=== PATIENT | male | born 1965 | race Two or more races ===

== ENCOUNTER 2022-07-14 13:21 | Emergency (ER) | payer OTHER ==
[~2022-07-14] VITALS: Ht 170.2 cm; Wt 93.0 kg
[2022-07-14 13:45] VITALS: BP 142/71
[2022-07-14] MEDS ORDERED: LIDOCAINE 1% 500 MG/ 50 ML VIAL INJ ONE (16:10)
[2022-07-14] MEDS ORDERED: IBUP-1842 PO (16:45)
[2022-07-14] MEDS ORDERED: CEPH-588 PO (16:45)
--- NOTE | 2022-07-14 16:52 | NUR ---
LONG FINGER SPLINT APPLIED TO R INDEX. PT FINGER DRESSED WITH NON ADHERENT.
--- NOTE | 2022-07-14 17:40 | NUR ---
ASSUMED PATIENT CARE FOR DC INSTRUCTIONS, Patient discharged with v/s stable. Written and verbal after care instructions given and explained. Patient alert, oriented and verbalized understanding of instructions. Ambulatory with steady gait. All questions addressed prior to discharge. ID band removed. Patient advised to follow up with PMD. Rx of KEFLEX, MOTRIN given. Patient educated on indication of medication including possible reaction and side effects. Opportunity to ask questions provided and answered.
[2022-07-14 17:41] VITALS: BP 139/68
== END 2022-07-14 17:41 | disposition home or self-care (01) ==
LOC: MED 13:21
DX: S61.210A Laceration without foreign body of right index finger without damage to nail, initial encounter (principal); S60.511A Abrasion of right hand, initial encounter; Z79.1 Long term (current) use of non-steroidal anti-inflammatories (NSAID); Z79.2 Long term (current) use of antibiotics; W22.8XXA Striking against or struck by other objects, initial encounter; Y92.89 Other specified places as the place of occurrence of the external cause; Y93.89 Activity, other specified; Y99.8 Other external cause status
CPT/HCPCS: 12001; 99283